=== PATIENT | male | born 1955 | race Caucasian/White ===

== ENCOUNTER → 2016-09-17 | Outpatient (CLI) | payer BC ==
[~2016-09-17] MED LIST: fentaNYL 100 MCG/2 ML INJ ONE
== END ==
LOC: FIMAGING 13:17
PROVIDERS: ATTEND Family Medicine
DX: M79.661 Pain in right lower leg (principal); M79.662 Pain in left lower leg
CPT/HCPCS: J3010

== ENCOUNTER → 2017-04-20 | Outpatient (CLI) | payer BC | LOC: FIMAGING 13:40 | PROVIDERS: ATTEND Physical Medicine & Rehabilitation | DX: M54.5 Low back pain (principal); M51.36 Other intervertebral disc degeneration, lumbar region; M51.26 Other intervertebral disc displacement, lumbar region ==

== ENCOUNTER 2017-07-20 18:29 | Observation (INO) | payer BC ==
[2017-07-20] MEDS ORDERED: NS 1,000 ML IV ONE (19:08)
[2017-07-20] MEDS ORDERED: IOPAMIDOL (ISOVUE 370) 100 ML BTL IV ONE (19:13)
[2017-07-20 19:14] LABS: PLATELET COUNT 225 10^3/uL (150-400)
--- NOTE | 2017-07-20 19:14 | EDPHY ---
H & P Stated Complaint: felt off for a few days/today had transient issues word finding at noonish Time Seen by Provider: 07/20/17 18:52 HPI/ROS: CHIEF COMPLAINT: Confusion HISTORY OF PRESENT ILLNESS: The patient is a 62-year-old man who comes to the emergency department with his complaining of word-finding difficulties. 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 He did not think that it was not abnormal. On the way home from work he stopped by the grocery store and had some trouble thinking clearly and asking the pharmacist questions about a new prescription. He then got home and his told him to a take an aspirin. He states that he could not understand the word aspirin. His states that he was staring at the bottles and seemed confused. 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 He now is back to normal. He denies any recent illness. No headache. No trauma. No fever. REVIEW OF SYSTEMS: Constitutional: denies: chills, fever, recent illness, recent injury EENTM: denies: blurred vision, double vision, nose congestion Respiratory: denies: cough, shortness of breath Cardiac: denies: chest pain, irregular heart rate, lightheadedness, palpitations Gastrointestinal/Abdominal: denies: abdominal pain, diarrhea, nausea, vomiting, blood streaked stools Genitourinary: denies: dysuria, frequency, hematuria, pain Musculoskeletal: denies: joint pain, muscle pain Skin: denies: lesions, rash, jaundice, bruising Neurological: denies: headache, numbness, paresthesia, tingling, dizziness, weakness Hematologic/Lymphatic: denies: blood clots, easy bleeding, easy bruising Immunologic/allergic: denies: HIV/AIDS, transplant EXAM: GENERAL: Well-appearing, well-nourished and in no acute distress. HEAD: Atraumatic, normocephalic. EYES: Pupils equal round and reactive to light, extraocular movements intact, sclera anicteric, conjunctiva are normal. ENT: TMs normal, nares patent, oropharynx clear without exudates. Moist mucous membranes. NECK: Normal range of motion, supple without lymphadenopathy or JVD. LUNGS: Breath sounds clear to auscultation bilaterally and equal. No wheezes rales or rhonchi. HEART: Regular rate and rhythm without murmurs, rubs or gallops. ABDOMEN: Soft, nontender, normoactive bowel sounds. No guarding, no rebound. No masses appreciated. BACK: No CVA tenderness, no spinal tenderness, step-offs or deformities EXTREMITIES: Normal range of motion, no pitting or edema. No clubbing or cyanosis. NEUROLOGICAL: Cranial nerves II through XII grossly intact. Normal speech, normal gait. 5/5 strength, normal movement in all extremities, normal sensation NIH stroke score 0 PSYCH: Normal mood, normal affect. SKIN: Warm, dry, normal turgor, no visible rashes or lesions. Source: Patient, Family Exam Limitations: No limitations - Personal History Current Tetanus/Diphtheria Vaccine: Unsure - Medical/Surgical History Hx Asthma: No Hx Chronic Respiratory Disease: No Hx Diabetes: No Hx Cardiac Disease: No Hx Renal Disease: No Hx Cirrhosis: No Hx Alcoholism: No Hx HIV/AIDS: No Hx Splenectomy or Spleen Trauma: No Other PMH: PMH: hernias,. PSH: - Family History Significant Family History: No pertinent family hx - Social History Smoking Status: Never smoked Alcohol Use: Sober Drug Use: None Constitutional: Initial Vital Signs Temperature (C) 36.9 C 07/20/17 18:40 Heart Rate 75 07/20/17 18:40 Respiratory Rate 17 07/20/17 18:40 Blood Pressure 154/84 H 07/20/17 18:40 O2 Sat (%) 95 07/20/17 18:40 O2 Delivery Mode Room Air Allergies/Adverse Reactions: No Known Allergies Allergy (Verified 07/20/17 18:38) Home Medications: Medication Instructions Recorded Allopurinol [Zyloprim] 300 mg PO DAILY 07/20/17 Atorvastatin Calcium [Lipitor 20 20 mg PO HS 07/20/17 mg (*)] Cholecalciferol Vit D3 [Vitamin D3 1,000 units PO DAILY 07/20/17 (*)] Ciclopirox [Ciclopirox] 1 suha TP AD 07/20/17 Levothyroxine [Synthroid 75 mcg 75 mcg PO DAILY06 07/20/17 (*)] Tavaborole [Kerydin] 1 suha TP AD 07/20/17 Medical Decision Making - Diagnostics EKG Interpretation: An EKG obtained and was read and documented in trace view. Please see trace view for full reading and report. Sinus rhythm, no acute ischemic changes Imaging Results: Imaging Impressions Head CT 07/20/17 19:08 Impression: Normal brain. No intracranial hemorrhage or evidence of ischemia. Findings discussed with Emergency Department physician, Kyler Khalil on 2017, 19:47. Head CTA 07/20/17 19:08 Impression: 1. Normal intracranial arterial circulation. No evidence of embolic disease or aneurysm. 2. Patent venous system. Findings discussed with Emergency Department physician, Kyler Khalil M.D., on July 20, 2017 at 2100. Neck CTA 07/20/17 19:08 Impression: 1. Minimal bilateral carotid plaque resulting in less than 20% narrowing bilaterally. 2. No hemodynamically significant stenosis, dissection, or occlusion. Findings discussed with Emergency Department physician, Kyler Khalil M.D., on July 20, 2017 at 2100. Measurement of carotid stenosis is based on the residual internal carotid diameter with [place] Symptomatic Carotid Endarterectomy Trial (NASCET) based stenosis levels. E:RH/amm Imaging: Discussed imaging studies w/ call circuit worker Radiologist ED Course/Re-evaluation: 820 p.m. I discussed the case with Dr. Overton who will admit to medical service. Patient's lab work and head CT are thus far negative. Differential Diagnosis: Partial list of the Differential diagnosis considered include but were not limited to; TIA, electrolyte abnormality, infection and although unlikely based on the history and physical exam, I also considered substance abuse. - Data Points Laboratory Results: Laboratory Results 07/20/17 19:01 07/20/17 19:01 07/20/17 07/20/17 07/20/17 19:01 19:01 19:01 WBC 7.14 10^3/uL 10^3/uL (3.80-9.50) RBC 4.74 10^6/uL 10^6/uL (4.40-6.38) Hgb 15.3 g/dL g/dL (13.7-17.5) Hct 44.0 % % (40.0-51.0) MCV 92.8 fL fL (81.5-99.8) MCH 32.3 pg pg (27.9-34.1) MCHC 34.8 g/dL g/dL (32.4-36.7) RDW 12.5 % % (11.5-15.2) Plt Count 225 10^3/uL 10^3/uL (150-400) MPV 9.8 fL fL (8.7-11.7) Neut % (Auto) 66.2 % % (39.3-74.2) Lymph % (Auto) 19.5 % % (15.0-45.0) Lea % (Auto) 10.8 % % (4.5-13.0) Eos % (Auto) 2.5 % % (0.6-7.6) Baso % (Auto) 0.7 % % (0.3-1.7) Nucleat RBC Rel Count 0.0 % % (0.0-0.2) Absolute Neuts (auto) 4.73 10^3/uL 10^3/uL (1.70-6.50) Absolute Lymphs (auto) 1.39 10^3/uL 10^3/uL (1.00-3.00) Absolute Monos (auto) 0.77 10^3/uL 10^3/uL (0.30-0.80) Absolute Eos (auto) 0.18 10^3/uL 10^3/uL (0.03-0.40) Absolute Basos (auto) 0.05 10^3/uL 10^3/uL (0.02-0.10) Absolute Nucleated RBC 0.00 10^3/uL 10^3/uL (0-0.01) Immature Gran % 0.3 % % (0.0-1.1) Immature Gran # 0.02 10^3/uL 10^3/uL (0.00-0.10) PT 13.2 SEC SEC (12.0-15.0) INR 0.98 (0.83-1.16) Sodium 139 mEq/L mEq/L (135-145) Potassium 4.0 mEq/L mEq/L (3.5-5.2) Chloride 104 mEq/L mEq/L (97-110) Carbon Dioxide 21 mEq/l L mEq/l (22-31) Anion Gap 14 mEq/L mEq/L (8-16) BUN 12 mg/dL mg/dL (7-23) Creatinine 0.8 mg/dL mg/dL (0.7-1.3) Estimated GFR > 60 Glucose 99 mg/dL mg/dL (70-100) Calcium 10.2 mg/dL mg/dL (8.5-10.4) Medications Given: Discontinued Medications Sodium Chloride (Ns) 1,000 mls @ 0 mls/hr IV ONCE ONE; Wide Open PRN Reason: Protocol Stop: 07/20/17 19:09 Last Admin: 07/20/17 19:35 Dose: 1,000 mls Departure - Departure Disposition: [facility] Inpatient Acute Clinical Impression: Transient cerebral ischemia Qualifiers: Transient cerebral ischemia type: unspecified Qualified Code(s): G45.9 - Transient cerebral ischemic attack, unspecified Condition: Fair
--- NOTE | 2017-07-20 19:19 | CPEKG ---
Heart Rate: 73 RR Interval: 822 P-R Interval: 164 QRSD Interval: 86 QT Interval: 388 QTC Interval: 428 P Bassfield: 71 QRS Bassfield: 48 T Wave Bassfield: 2 EKG Severity - BORDERLINE ECG - EKG Impression: SINUS RHYTHM EKG Impression: BORDERLINE T ABNORMALITIES, INFERIOR LEADS Electronically Signed By: Kyler Khalil 20-Jul-2017 19:21:36
[2017-07-20 19:26] LABS: INR 0.98 (0.83-1.16); PROTIME(PATIENT) 13.2 SEC (12.0-15.0)
[2017-07-20] MEDS ORDERED: LIDOCAINE 1% 5 ML SDV ONE (20:40)
[2017-07-20] MEDS ORDERED: ACETAMINOPHEN 325 MG TAB PO PRN (22:08)
--- NOTE | 2017-07-20 22:42 | GHP ---
[f rep st] HISTORY AND PHYSICAL DATE OF ADMISSION: 07/20/2017 CHIEF COMPLAINT: Confusion. HISTORY OF PRESENT ILLNESS: The patient is a pleasant 62-year-old gentleman, with a past medical his tory of hyperlipidemia, who was brought to the [facility] Emergency Room by his after she noted him to be quite confused during the day. 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 After returnin kymberly home from the lecture, his noted that he seemed somewhat confused and had difficulty finding w ords. Patient states he has noted this over the past years but simple things like who the president currently is he was unable to answer. She apparently advised him to take an aspirin and he also seem ed to be confused about what the aspirin was. He seemed to get better, according to his , after about 1 hour. In the emergency room, he had a CT scan of the head, which did not show any acute abno rmalities, and he is being admitted for further evaluation. PAST MEDICAL HISTORY: 1. Hyperlipidemia. 2. Hypothyroidism. 3. Hyperparathyroidism, followed by Dr. Nguyen. 4. Elevated blood pressure readings without a clear diagnosis of hypertension at this time. PAST SURGICAL HISTORY: Hernia repair. MEDICATIONS: 1. Atorvastatin 20 mg nightly. 2. Allopurinol 300 mg daily. 3. Levothyroxine 75 mcg daily. ALLERGIES: No known drug allergies. FAMILY HISTORY: No known family history of early strokes or TIA or premature coronary artery disease . SOCIAL HISTORY: Patient is currently . He works for [employer]. He is a nonsmoker. He drinks alc ohol 2-3 times per week. REVIEW OF SYSTEMS: CONSTITUTIONAL: No complaints of any fevers or chills. He does note a 7-pound w eight gain recently. ENT: No recent upper respiratory illnesses, although he does note some slight neck discomfort from swollen glands. CARDIOVASCULAR: No complaints of palpitations or syncopal epis odes. RESPIRATORY: No complaints of shortness of breath or cough. GI: No nausea, vomiting, diarrh ea, or constipation. No abdominal pain. : No report of any difficulty with urination. NEUROLOGIC : There are no complaints of any headaches or focal weakness. No facial asymmetry was observed by h is . HEMATOLOGIC: No history of any deep vein thrombosis or pulmonary embolism. PSYCHIATRIC: No history of anxiety or depression. ENDOCRINE: Positive for gout and hypothyroidism and hyperparat hyroidism. SKIN: No new skin rashes. MUSCULOSKELETAL: No focal joint pains. PHYSICAL EXAM: VITAL SIGNS: Temperature 36.9, blood pressure 154/98, heart rate 74, respirations 16 , saturating 94% on room air. GENERAL: Patient appears comfortable. He is awake, alert, conversant , oriented x3. He was able to tell me the president, the year, and location. HEENT: Extraocular mo vements intact. Pupils equal. No scleral icterus. Mucous membranes moist. NECK: Supple. No urias tid bruit noted. CHEST: Clear to auscultation with normal respiratory effort. HEART: Regular rate and rhythm. No murmurs. ABDOMEN: Soft, nontender, nondistended. : No Joyce catheter in place. EXTREMITIES: No significant pitting edema. NEUROLOGIC: Cranial nerves 2-12 appear intact. Stren gth 5/5 in all extremities. 2+ patellar reflexes bilaterally. LABS: White blood cell count of 7, hemoglobin 15, platelets 225. Sodium 139, potassium 4.0, chlorid e 104, bicarb 21, BUN 12, creatinine 0.8, glucose 99. INR 0.98. Calcium 10.2. ECG shows normal sin us rhythm. IMAGING: CT head as detailed in the HPI. ASSESSMENT/PLAN: 1. Acute confusion, possibly transient ischemia attack related versus transient amnesia. He does romo ve risk factors for vascular disease with hyperlipidemia and what I suspect may be undiagnosed hypert ension. He has purchased a blood pressure cuff to use at home but has not started checking aggressiv isaiah. I recommend further assessment with an MRI of the brain. Await CTA of the head and neck result s. Second opinion with Neurology as well I think would be helpful here. 2. Elevated blood pressure readings. Follow closely overnight. Patient may actually be hypertensiv e. I do follow him in the outpatient setting and could consider short-term followup after he has had an opportunity to obtain his home blood pressure readings more consistently. 3. Hyperlipidemia. Continue atorvastatin. 4. Hypothyroidism. Continue levothyroxine. 5. Deep vein thrombosis prophylaxis, Lovenox. 6. Disposition. I will admit him under an observation status. /[id number]/MODL
[2017-07-21 05:24] LABS: PLATELET COUNT 197 10^3/uL (150-400)
[2017-07-21] MEDS ORDERED: LEVOTHYROXINE 75 MCG TAB PO SCH (06:00)
[2017-07-21 07:51] VITALS: TEMP 98.4
[2017-07-21] MEDS ORDERED: ALLOPURINOL 300 MG TAB PO SCH (09:00)
[2017-07-21] MEDS ORDERED: ENOXAPARIN 40 MG/0.4 ML SYR SC SCH (09:00)
--- NOTE | 2017-07-21 09:52 | NEUROPROG ---
Assessment: HOSPITAL NEUROLOGY CONSULT REQUESTING: Kerwin Overton MD REASON: possible TIA HPI: 62 year old right-handed man with a history of HLD, HTN who presented to our ED with concern to TIA/stroke. 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 He went home and his felt he was worse than he endorsed. He states he was slow to respond to questions. He was being asked about aspirin and felt like he had to think about his response longer than he should. Same thing when asked who the president currently is - he states he initially said "a news junky" then responded with the appropriate name. He describes his symptoms as slowed thinking - he states he was producing speech fluently and was coherent and able to understand. He states he always produced the correct answer, but it just took longer. He denies any dysarthria, weakness, sensory loss, visual disturbance, gait change, [place], neck pain, neck stiffness, fevers, hearing changes, CP, SOB, palpitations. ROS: As per the HPI, otherwise a complete 12 point ROS was performed and is negative ALLERGIES AND MEDS: As recorded in the EMR - reviewed and reconciled PFSH: As per the intake H&P by Dr. Overton from yesterday EXAM: VS reviewed in EMR GEN: WDWN sitting in NAD HEENT: NCAT, sclera anicteric, conjunctiva not injected, MMM, oropharynx clear, no scalp tenderness NECK: supple, nontender, no meningismus CV: RRR s1 s2 wo m/r/c/g. Carotid pulses 2+ wo bruit NEURO: MS: awake, alert, oriented to all spheres. Speech nondysarthric. No language disturbance. Follows commands. Attends to both sides. Recent/remote memory grossly intact. Mood euthymic. Good fund of knowledge. CN: pupils 3mm round and reactive. Fundi with sharp discs. VFF. Primary gaze centered. Full ocular motility. Facial sensation preserved. Face symmetric. Hearing grossly intact to finger rub. Palatoglossal movements intact. Shoulder shrug and head turn strong. MOTOR: normal bulk/tone. No adventitial movements. Full power throughout. SENSORY: intact to all modalities throughout. No extinction. COORD: no ataxia FN/HS. Cameron preserved. REFLEX: plantars down. No clonus. Absent ankle jerks, other DTRS 2/4. GAIT: deferred to PT safety eval DATA REVIEW: Labs reviewed in EMR PERSONALLY INTERPRETED RESULTS AND DATA: CT head wo - normal CTA head/neck - insignificant/mild atherosclerotic plaque in both carotid bulbs , otherwise normal MRI brain wo - rare punctate area of T2 FLAIR hyperintensity in the white matter - nonspecific. No evidence of chronic or acute/subacute infarct IMPRESSION AND RECOMMENDATIONS: // ENCEPHALOPATHY Patient with an episode of confusion with nik localizing symptoms. His vascular workup is negative. Hard to say what this may have represented, but I recommend vascular risk factor optimization nonetheless. - advised him to restart ASA 81mg daily - work with PCP on goal normotension - continue statin - consider goal LDL < 100 - work with PCP on optimizing BS with goal A1c < 6.5 - PT/OT/RELIABILITY MANAGER consults - stroke education - can discharge from neurologic perspective and followup with PCP - will sign off. Recall PRN Objective: Vital Signs Temp Pulse Resp BP Pulse Ox 36.9 C 75 17 134/73 H 95 07/21/17 07:50 07/21/17 07:50 07/21/17 07:50 07/21/17 07:50 07/21/17 07:50 Laboratory Results 07/21/17 04:11 07/21/17 04:11 07/20/17 07/21/17 07/22/17 05:59 05:59 05:59 Intake Total 1500 Balance 1500 PT 13.2 SEC (12.0-15.0) 07/20/17 19:01 INR 0.98 (0.83-1.16) 07/20/17 19:01 Allergies/Adverse Reactions: No Known Allergies Allergy (Verified 07/20/17 18:38)
--- NOTE | 2017-07-21 10:45 | ASMTLACE ---
JANEYE Length of stay for Answers: 1 day current admission Acuity / Level of Answers: No Care: Did the patient have an inpatient admission? # of Emergency department Answers: 1-2 visits in the last 6 months Score: 2 Date Signed: 07/21/2017 10:44 AM Electronically Signed By:Marizol Beth RN
[2017-07-21 11:24] VITALS: BP 143/88; PULSE 71; RESP 16; O2SAT 94
--- NOTE | 2017-07-21 11:51 | ASMTCMCOM ---
CM Note CM Note Notes: Pt admitted w/TIA symptoms which have resolved. Reviewed chart and discussed w/RN. Anticipate dc home w/ w/no CM needs. Date Signed: 07/21/2017 11:51 AM Electronically Signed By:Marizol Beth RN
--- NOTE | 2017-07-21 13:22 | PDDCSUM ---
Discharge Summary Discharge Summary: DISCHARGE DIAGNOSES: -suspected TIA -acute mild confusion with expressive language difficulty CONSULTANTS: Dr. Kyler Posadas PROCEDURES: CT scan of head CT angio of head and neck MRI of brain HOSPITAL COURSE SUMMARY: This patient with no previous history of stroke symptoms or cerebral vascular disease came to the hospital with an episode of mild confusion and difficulty with speech in the way of word-finding issues. Those symptoms resolved spontaneously, and there have been no recurrence and there were no other neurologic symptoms during or since. He has had no headache, no head injury, no fevers, and is not diabetic. He has had no palpitations or other cardiac symptoms and has no history of cardiac arrhythmia or other heart disease. Here in the hospital he has had a normal neurologic examination. He was somewhat hypertensive although his blood pressures have improved. He has been on cardiac cath lab manager without any sign of atrial fibrillation. Imaging studies showed no evidence of acute ischemia, bleeding, mass, or other acute abnormalities. There is some microvascular gliosis or similar change typical of his age. The patient is on a statin medicine at home though his LDL is 118 here having most recently been measured at approximately 70. He does admit he has gained weight recently due to lack of exercise from back pain. Also notable the patient had stopped taking his daily aspirin a month or so ago. At this point the patient is felt stable for discharge to home. Is strongly recommended that he resume his daily aspirin. Also he should have his cholesterol rechecked again in the outpatient setting to make sure that were keeping his LDL in good range. I have recommended that he keep with a good low- fat diet and that he came with his diet for some weight loss since he has had a recent weight gain. Also in terms of exercise a week dusk us measures he can take for his back in order to help him get back to exercising as soon as possible. Recommended that he watch for any symptoms consistent with atrial fibrillation and if he has any to seek evaluation with cardiac monitoring. PENDING TEST RESULTS: None MEDICATION CHANGES: Resume aspirin 81 mg daily which she had previously. FOLLOW-UP PLAN: With Dr. Jane Overton in 2 4 weeks Greater than 35 minutes bedside and care coordination time today
[2017-07-21] MEDS ORDERED: ATORVASTATIN CALCIUM 20 MG TAB PO SCH (21:00)
== END 2017-07-21 14:08 | disposition home or self-care (01) ==
LOC: F3N 21:06
PROVIDERS: ADMIT Internal Medicine; ATTEND Internal Medicine
DX: G45.9 Transient cerebral ischemic attack, unspecified (principal); R29.700 NIHSS score 0; R03.0 Elevated blood-pressure reading, without diagnosis of hypertension; E86.9 Volume depletion, unspecified; I77.9 Disorder of arteries and arterioles, unspecified; E78.5 Hyperlipidemia, unspecified; E03.9 Hypothyroidism, unspecified; E21.3 Hyperparathyroidism, unspecified
CPT/HCPCS: 70450; 70496; 70498; 70551; 92523; 93005; 97161; 97166; 99285; G0378; J1650; Q9967